=== PATIENT | female | born 1950 | race Caucasian/White ===

== ENCOUNTER → 2018-03-14 | Outpatient (CLI) | payer OTHER ==
[~2018-03-14] MED LIST: ALIGN4 MG PO; CENTRUM SILVER1 EAC5 PO; HYDROCODON-ACE1 EAC8 PO; MIRALAX17 GM PO; PEPCID20 MG PO; PROTONIX40 M1 PO; VIACTIV SOFT C1 EACH PO; ZOFRAN ODT4 MG PO
== END ==
LOC: HYPER 07:03
DX: T81.89XD Other complications of procedures, not elsewhere classified, subsequent encounter (principal); K50.912 Crohn's disease, unspecified, with intestinal obstruction; K91.89 Other postprocedural complications and disorders of digestive system; K21.9 Gastro-esophageal reflux disease without esophagitis; F41.9 Anxiety disorder, unspecified; Z87.19 Personal history of other diseases of the digestive system; Z87.891 Personal history of nicotine dependence; Y83.8 Other surgical procedures as the cause of abnormal reaction of the patient, or of later complication, without mention of misadventure at the time of the procedure

== ENCOUNTER → 2018-04-04 | Outpatient (CLI) | payer OTHER | LOC: HYPER 06:54 | DX: T81.89XD Other complications of procedures, not elsewhere classified, subsequent encounter (principal); K50.912 Crohn's disease, unspecified, with intestinal obstruction; K21.9 Gastro-esophageal reflux disease without esophagitis; F41.9 Anxiety disorder, unspecified; Z87.19 Personal history of other diseases of the digestive system; Z87.891 Personal history of nicotine dependence; Y83.8 Other surgical procedures as the cause of abnormal reaction of the patient, or of later complication, without mention of misadventure at the time of the procedure ==

== ENCOUNTER → 2018-04-18 | Outpatient (CLI) | payer OTHER ==
[2018-04-18 10:12] VITALS: BP 137/96
== END | disposition home or self-care (01) ==
LOC: SPEC 06:27
DX: L02.211 Cutaneous abscess of abdominal wall (principal); T81.83XA Persistent postprocedural fistula, initial encounter; K31.6 Fistula of stomach and duodenum; K50.90 Crohn's disease, unspecified, without complications; K21.9 Gastro-esophageal reflux disease without esophagitis; Z90.49 Acquired absence of other specified parts of digestive tract; Z86.2 Personal history of diseases of the blood and blood-forming organs and certain disorders involving the immune mechanism; Z82.3 Family history of stroke; Z87.891 Personal history of nicotine dependence

== ENCOUNTER → 2018-05-06 | Outpatient (CLI) | payer OTHER | LOC: HYPER 07:06 | DX: T81.89XD Other complications of procedures, not elsewhere classified, subsequent encounter (principal); K50.912 Crohn's disease, unspecified, with intestinal obstruction; K21.9 Gastro-esophageal reflux disease without esophagitis; F41.9 Anxiety disorder, unspecified; Z87.19 Personal history of other diseases of the digestive system; Z87.891 Personal history of nicotine dependence; Y83.8 Other surgical procedures as the cause of abnormal reaction of the patient, or of later complication, without mention of misadventure at the time of the procedure ==

== ENCOUNTER → 2018-06-11 | Outpatient (CLI) | payer OTHER | LOC: HYPER 06:48 | DX: T81.89XD Other complications of procedures, not elsewhere classified, subsequent encounter (principal); K91.89 Other postprocedural complications and disorders of digestive system; K50.912 Crohn's disease, unspecified, with intestinal obstruction; K21.9 Gastro-esophageal reflux disease without esophagitis; Z87.891 Personal history of nicotine dependence; Y83.8 Other surgical procedures as the cause of abnormal reaction of the patient, or of later complication, without mention of misadventure at the time of the procedure ==

== ENCOUNTER → 2018-07-16 | Outpatient (CLI) | payer OTHER | LOC: HYPER 07-11 09:04 | DX: T81.89XD Other complications of procedures, not elsewhere classified, subsequent encounter (principal); K91.89 Other postprocedural complications and disorders of digestive system; K50.912 Crohn's disease, unspecified, with intestinal obstruction; K21.9 Gastro-esophageal reflux disease without esophagitis; F41.9 Anxiety disorder, unspecified; Z87.19 Personal history of other diseases of the digestive system; Z87.891 Personal history of nicotine dependence; Y83.8 Other surgical procedures as the cause of abnormal reaction of the patient, or of later complication, without mention of misadventure at the time of the procedure ==

== ENCOUNTER → 2018-08-13 | Outpatient (CLI) | payer OTHER | LOC: HYPER 07:16 | DX: T81.89XD Other complications of procedures, not elsewhere classified, subsequent encounter (principal); K50.912 Crohn's disease, unspecified, with intestinal obstruction; K91.89 Other postprocedural complications and disorders of digestive system; F41.9 Anxiety disorder, unspecified; Z87.891 Personal history of nicotine dependence; Z87.19 Personal history of other diseases of the digestive system; Y83.8 Other surgical procedures as the cause of abnormal reaction of the patient, or of later complication, without mention of misadventure at the time of the procedure ==

== ENCOUNTER → 2018-09-18 | Outpatient (CLI) | payer OTHER | LOC: HYPER 07:00 | DX: T81.89XD Other complications of procedures, not elsewhere classified, subsequent encounter (principal); K91.89 Other postprocedural complications and disorders of digestive system; K50.912 Crohn's disease, unspecified, with intestinal obstruction; K21.9 Gastro-esophageal reflux disease without esophagitis; F41.9 Anxiety disorder, unspecified; Z87.19 Personal history of other diseases of the digestive system; Z87.891 Personal history of nicotine dependence; Y83.8 Other surgical procedures as the cause of abnormal reaction of the patient, or of later complication, without mention of misadventure at the time of the procedure ==

== ENCOUNTER → 2018-10-16 | Outpatient (CLI) | payer OTHER | LOC: HYPER 06:52 | DX: T81.89XD Other complications of procedures, not elsewhere classified, subsequent encounter (principal); K50.013 Crohn's disease of small intestine with fistula; K91.89 Other postprocedural complications and disorders of digestive system; K50.912 Crohn's disease, unspecified, with intestinal obstruction; F41.9 Anxiety disorder, unspecified; Z87.891 Personal history of nicotine dependence; Z87.19 Personal history of other diseases of the digestive system; Y83.8 Other surgical procedures as the cause of abnormal reaction of the patient, or of later complication, without mention of misadventure at the time of the procedure ==

== ENCOUNTER → 2018-11-13 | Outpatient (CLI) | payer OTHER | LOC: HYPER 06:40 | DX: T81.89XD Other complications of procedures, not elsewhere classified, subsequent encounter (principal); K50.013 Crohn's disease of small intestine with fistula; K91.89 Other postprocedural complications and disorders of digestive system; K50.912 Crohn's disease, unspecified, with intestinal obstruction; F41.9 Anxiety disorder, unspecified; Z87.19 Personal history of other diseases of the digestive system; Z87.891 Personal history of nicotine dependence; Y83.8 Other surgical procedures as the cause of abnormal reaction of the patient, or of later complication, without mention of misadventure at the time of the procedure ==

== ENCOUNTER → 2018-12-26 | Outpatient (CLI) | payer OTHER | LOC: HYPER 12-19 11:42 | DX: T81.89XD Other complications of procedures, not elsewhere classified, subsequent encounter (principal); K50.013 Crohn's disease of small intestine with fistula; K91.89 Other postprocedural complications and disorders of digestive system; K50.912 Crohn's disease, unspecified, with intestinal obstruction; F41.9 Anxiety disorder, unspecified; Z87.891 Personal history of nicotine dependence; Z87.19 Personal history of other diseases of the digestive system; Y83.8 Other surgical procedures as the cause of abnormal reaction of the patient, or of later complication, without mention of misadventure at the time of the procedure ==

== ENCOUNTER → 2019-01-23 | Outpatient (CLI) | payer OTHER | LOC: HYPER 06:57 | DX: T81.89XD Other complications of procedures, not elsewhere classified, subsequent encounter (principal); K50.013 Crohn's disease of small intestine with fistula; K91.89 Other postprocedural complications and disorders of digestive system; K50.912 Crohn's disease, unspecified, with intestinal obstruction; K21.9 Gastro-esophageal reflux disease without esophagitis; F41.9 Anxiety disorder, unspecified; Z87.19 Personal history of other diseases of the digestive system; Z87.891 Personal history of nicotine dependence; Y83.8 Other surgical procedures as the cause of abnormal reaction of the patient, or of later complication, without mention of misadventure at the time of the procedure ==

== ENCOUNTER → 2019-03-18 | Outpatient (CLI) | payer OTHER | LOC: HYPER 09:20 | DX: T81.89XD Other complications of procedures, not elsewhere classified, subsequent encounter (principal); K50.013 Crohn's disease of small intestine with fistula; K91.89 Other postprocedural complications and disorders of digestive system; F41.9 Anxiety disorder, unspecified; H26.9 Unspecified cataract; Z87.891 Personal history of nicotine dependence; Y83.8 Other surgical procedures as the cause of abnormal reaction of the patient, or of later complication, without mention of misadventure at the time of the procedure ==

== ENCOUNTER → 2019-05-21 | Outpatient (CLI) | payer OTHER | LOC: HYPER 13:21 | DX: T81.89XD Other complications of procedures, not elsewhere classified, subsequent encounter (principal); K50.013 Crohn's disease of small intestine with fistula; K91.89 Other postprocedural complications and disorders of digestive system; K50.912 Crohn's disease, unspecified, with intestinal obstruction; D64.9 Anemia, unspecified; F41.9 Anxiety disorder, unspecified; Z87.891 Personal history of nicotine dependence; Z87.19 Personal history of other diseases of the digestive system; Y83.8 Other surgical procedures as the cause of abnormal reaction of the patient, or of later complication, without mention of misadventure at the time of the procedure ==

== ENCOUNTER → 2019-07-16 | Outpatient (CLI) | payer OTHER | LOC: HYPER 08:14 | DX: T81.89XD Other complications of procedures, not elsewhere classified, subsequent encounter (principal); K50.013 Crohn's disease of small intestine with fistula; K91.89 Other postprocedural complications and disorders of digestive system; K50.912 Crohn's disease, unspecified, with intestinal obstruction; K21.9 Gastro-esophageal reflux disease without esophagitis; F41.9 Anxiety disorder, unspecified; Z87.19 Personal history of other diseases of the digestive system; Z87.891 Personal history of nicotine dependence; Y83.8 Other surgical procedures as the cause of abnormal reaction of the patient, or of later complication, without mention of misadventure at the time of the procedure ==